=== PATIENT | female | born 1945 | race Caucasian/White ===

== ENCOUNTER → 2019-02-27 09:24 | Outpatient (CLI) | payer MEDICARE, OTHER ==
--- NOTE | 2019-02-28 14:04 | EC ---
PATIENT:JENY ALONSO DATE OF SERVICE: 02/27/19 SEX: F MEDICAL RECORD: [id number] DATE OF : 43 [facility] AGE OF PATIENT: 73 ADMISSION DATE: 02/27/19 REFERRING PHYSICIAN: INTERPRETING PHYSICIAN: LETA FARNSWORTH MD ECHOCARDIOGRAM REPORT ECHO CHARGES 4 ECHO COMPLETE Date: 02/27/19 CLINICAL DIAGNOSIS: MR/MVP H/O HTN/A-FIB ECHOCARDIOGRAPHIC MEASUREMENTS (adult normal given) AC root (d.<3.7cm) 2.4 cm LV Septum d (<1.2 cm> 1.0 cm Valve Excursion 1.4 cm LV Septum (systole) 1.4 cm Left Atria (s.<4.0cm> 3.3 cm LVPW d(<1.2cm) 0.8 cm RV (d.<2.3cm) 2.2 cm LVPW (sytole) 1.4 cm LV diastole(<5.6CM) 4.8 cm MV E-F(>70mm/sec) cm LV systole 2.9 cm LVOT Diameter 1.5 cm MV exc.(>10mm) cm Est.ejection fraction (50-75%) % DOPPLER: LVIT cm/sec A 55.0 cm/sec E 86.0 cm/sec LA cm/sec RVSP 40.0 mmHg LVOT 92.0 cm/sec AOP1/2T m/s Asc. Ao 115 cm/sec RVOT 43.0 cm/sec RA cm/sec PA 62.0 cm/sec AV Gradient Peak 5.3 mmHg AV Mean 3.0 mmHg AV Area 1.1 cm MV Gradient Peak 3.5 mmHg MV Mean 1.2 mmHg MV Area cm COMMENTS: OP - HC Body Recall Instructor: 1 MAGDA WINNEBAGO Flight Operation Coordinator: 1 Dr. Farnsworth TAPE# PACS Pericardial Effusion N DATE OF SERVICE: 02/27/2019 FINDINGS: 1. Left ventricular chamber size is within normal limits. Left ventricular systolic function is normal. Overall ejection fraction estimated at 55%. 2. Left atrium is within normal limits. Right atrium and right ventricle chamber sizes are mildly dilated. 3. Valvular structures have normal structure and motion. 4. Doppler interrogation reveals moderate mitral regurgitation, moderate tricuspid regurgitation, no other valvular insufficiency or stenosis. ECHOCARDIOGRAM REPORT [id number] JENY ALONSO 5. No evidence of pericardial effusion or left ventricular thrombus. TRANSINT:[id number] Voice Confirmation ID: [id number] DOCUMENT ID: [id number] LETA FARNSWORTH MD at 1404 CC: [id number] DICTATION DATE: 02/27/19 1628 ACCOUNTANCY PROFESSOR: 02/28/19 0245 DEP CLI 02/27/19 [place] [id number]
== END | disposition home or self-care (01) ==
LOC: D.HCCECHO 01-24 10:30
PROVIDERS: ATTEND Internal Medicine Interventional Cardiology
DX: I34.0 Nonrheumatic mitral (valve) insufficiency (principal)